=== PATIENT | female | born 1965 | race Caucasian/White ===

== ENCOUNTER 2018-01-20 12:07 | Inpatient (IN) ==
--- NOTE | 2018-01-20 12:50 | Emergency Department Note ---
Disposition Clinical Impression: Syncope and collapse Head injury Qualifiers: Encounter type: initial encounter Qualified Code(s): S09.90XA - Unspecified injury of head, initial encounter Disposition: Admitted As Inpatient General Adult HPI - General Chief complaint: ED Syncope Stated complaint: "passed out hit head" sent by pulm Time Seen by Provider: 01/20/18 12:12 Source: patient Limitations: no limitations - History of Present Illness Pain Scale: 0 - Related Data Home Medications Medication Instructions Recorded Confirmed Citalopram Hydrobromide [Celexa] 20 mg PO DAILY 03/14/17 01/20/18 diazePAM [Valium] 5 mg PO BID 03/14/17 01/20/18 Gabapentin [Neurontin] 600 mg PO TID 08/27/17 01/20/18 Trazodone HCl 200 mg PO HS PRN 08/27/17 01/20/18 Ondansetron ODT [Zofran ODT] 4 mg SL Q6HR PRN 11/20/17 01/20/18 Rivaroxaban [Xarelto] 20 mg PO DAILY 01/20/18 01/20/18 Previous Rx's Medication Instructions Recorded Omeprazole [PriLOSEC] 40 mg PO DAILY@0630 30 Days #60 11/28/17 capsule. Allergies Allergy/AdvReac Type Severity Reaction Status Date / Time bee venom protein (honey bee) Allergy Swelling Verified 11/18/17 10:46 of Lip/Tongue/Throat acetaminophen AdvReac Vomiting Verified 11/18/17 10:46 [From Darvocet-N] prednisone AdvReac Agitated Verified 11/18/17 10:46 propoxyphene AdvReac Vomiting Verified 11/18/17 10:46 [From Darvocet-N] Past Medical History - Past Medical History Medical history: Reports: CVA, DVT, other Surgical history: Reports: appendectomy, cholecystectomy Psychiatric history: Reports: anxiety, depression - Social History Smoking Status: Current every day smoker Smokeless Tobacco Status: No Alcohol use: Reports: none Drug use: Reports: none Physical Exam - General Limitations: no limitations General appearance: alert, in no apparent distress Course Vital Signs Temperature 97.7 F 01/20/18 12:09 Pulse Rate 99 01/20/18 12:09 Respiratory Rate 18 01/20/18 12:09 Blood Pressure 94/69 01/20/18 12:09 O2 Sat by Pulse Oximetry 96 01/20/18 12:09 Temperature 97.6 F 01/20/18 15:52 Pulse Rate 78 01/20/18 15:52 Respiratory Rate 14 01/20/18 15:52 Blood Pressure 103/69 01/20/18 16:35 O2 Sat by Pulse Oximetry 95 01/20/18 15:52 Oxygen Delivery Oxygen Delivery Room Air Medical Decision Making - Lab Data Result diagrams: 01/20/18 12:59 01/20/18 12:59 Lab Results 01/20/18 01/20/18 Range/Units 12:59 12:59 WBC 9.3 (4.3-11.1) K/mcL RBC 4.36 (3.82-4.97) M/mcL Hgb 14.5 (11.5-15.4) g/dL Hct 42.7 (35.3-44.9) % MCV 97.9 (83.0-100.0) fL MCH 33.3 (28.0-33.3) pg MCHC 34.0 (31.6-35.5) g/dL RDW 15.6 H (11.5-14.5) % Plt Count 232 (140-400) K/mcL MPV 9.7 (9.4-12.4) fL Immature Gran % 0.2 (0-4) % Seg Neutrophils % 59.9 % Lymphocytes % 31.5 % Monocytes % 5.4 % Eosinophils % 2.5 % Basophils % 0.5 % Neutrophils # 5.5 (1.6-8.9) K/mcL Lymphocytes # 2.9 (0.6-4.6) K/mcL Monocytes # 0.5 (0.0-1.3) K/mcL Eosinophils # 0.2 (0.0-0.6) K/mcL Basophils # 0.1 (0.0-0.2) K/mcL Sodium 137 (136-145) mEq/L Potassium 2.3 L* (3.5-5.1) mEq/L Chloride 106 (98-107) mEq/L Carbon Dioxide 23 (23-29) mEq/L BUN 11 (6-20) mg/dL Creatinine 0.92 (0.60-1.20) mg/dL Est GFR ( Amer) > 60 (> 60) Est GFR (Non-Af Amer) > 60 (> 60) BUN/Creatinine Ratio 12 (6-26) Glucose 83 (70-105) mg/dL Calculated Osmolality 283 (280-300) Calcium 8.4 L (8.6-10.3) mg/dL Magnesium 1.7 (1.6-2.6) mg/dL Troponin I < 0.03 (< 0.04) ng/mL Attestation Statement - Attestation Attestation: I examined this patient and my medical decision-making was reviewed with the [facility] [employer] REPAIRER/PA/Advanced Practice Nurse/Resident Physician. I agree with the documented findings, disposition and treatment plan as described except to the extent set forth below. I did speak with the addition who sent the patient here and did see the patient spoke with her and the patient has had multiple episodes during this week and she is currently minimally hypotensive with a blood pressure 94. She does not have dizziness at this time. She does have chronic left-sided weakness from a stroke in 2010 but no new numbness or weakness of extremities, slurred speech, facial droop or confusion and no pain head, neck, chest, abdomen or back. Chronic diarrhea from Crohn's disease but no new diarrhea or vomiting. No blood in the urine or stool. No fever. Patient does have an evaluation in progress including labs, monitoring, EKG, chest x-ray and will be admitted. 1249 I did review the EKG showing normal sinus rhythm with a rate of 79 without acute ischemic, no evidence of hypertrophic cardiomyopathy, WPW, prolonged QT or Brugada syndrome. 1320
--- NOTE | 2018-01-20 12:56 | Emergency Department Note ---
Disposition Clinical Impression: Syncope and collapse, Hypokalemia Head injury Qualifiers: Encounter type: initial encounter Qualified Code(s): S09.90XA - Unspecified injury of head, initial encounter Disposition: Admitted As Inpatient Syncope HPI - General Chief Complaint: ED Syncope Stated Complaint: "passed out hit head" sent by pulm Time Seen by Provider: 01/20/18 12:12 Source: patient Limitations: no limitations Nursing Notes Reviewed: Yes Vital Signs Reviewed: Yes - History of Present Illness HPI Narrative: 52-year-old female history of prior left sided weakness from prior CVA and pulmonary embolism on Xarelto presents an emergency department for episode of syncope. Patient states over the past week she is been having fainting episodes up to 3 times a day over the past week, most recent yesterday where she passed out while walking and struck her head. She denies any prodromal symptoms such as chest pain, headache, shortness of breath, nausea or vomiting. She denies any alcohol use or neck pain. Denies any new extremity weakness. Denies slurring of her speech or confusion. She denies any syncopal episodes today. Patient was seen in the clinic by rfid systems engineer Dr. Bay was sent here for further evaluation. Denies history of congestive heart failure. Denies any other recent illness. Denies any bloody stool black tarry stool. Denies history of stroke. Pt Subjective Complaint: loss of consciousness - Related Data Home Medications Medication Instructions Recorded Confirmed Citalopram Hydrobromide [Celexa] 20 mg PO DAILY 03/14/17 01/20/18 diazePAM [Valium] 5 mg PO BID 03/14/17 01/20/18 Gabapentin [Neurontin] 600 mg PO TID 08/27/17 01/20/18 Trazodone HCl 200 mg PO HS PRN 08/27/17 01/20/18 Ondansetron ODT [Zofran ODT] 4 mg SL Q6HR PRN 11/20/17 01/20/18 Rivaroxaban [Xarelto] 20 mg PO DAILY 01/20/18 01/20/18 Previous Rx's Medication Instructions Recorded Omeprazole [PriLOSEC] 40 mg PO DAILY@0630 30 Days #60 11/28/17 capsule. Allergies Allergy/AdvReac Type Severity Reaction Status Date / Time bee venom protein (honey bee) Allergy Swelling Verified 11/18/17 10:46 of Lip/Tongue/Throat acetaminophen AdvReac Vomiting Verified 11/18/17 10:46 [From Darvocet-N] prednisone AdvReac Agitated Verified 11/18/17 10:46 propoxyphene AdvReac Vomiting Verified 11/18/17 10:46 [From Darvocet-N] All systems ED: reviewed and negative except as stated. Review of Systems: As Per HPI Constitutional: Reports: weakness (Chronic). Denies: fever, chills ENT ED: Denies: congestion Cardiovascular: Denies: chest pain, palpitations, dyspnea on exertion Respiratory: Denies: cough, dyspnea Gastrointestinal: Reports: diarrhea. Denies: abdominal pain, nausea, vomiting Musculoskeletal: Denies: back pain, neck pain, arthralgia Neurological: Denies: headache, confusion Past Medical History - Past Medical History Attestation: Yes The following information was validated with the patient. Source: patient Medical history: Reports: CVA, DVT, other Surgical history: Reports: appendectomy, cholecystectomy Psychiatric history: Reports: anxiety, depression - Social History Smoking Status: Current every day smoker Smokeless Tobacco Status: No Alcohol use: Reports: none Drug use: Reports: none Physical Exam - General Limitations: no limitations General appearance: alert, in no apparent distress - Head Head exam: atraumatic, normocephalic, normal inspection - Eye Eye exam: Present: normal appearance, PERRL, EOMI - ENT ENT exam: normal exam, normal oropharynx, mucous membranes moist - Neck Neck exam: Present: normal inspection, full ROM, trachea midline - Chest Chest inspection: Present: normal inspection, symmetric chest wall rise - Respiratory Respiratory exam: Present: normal lung sounds bilaterally - Cardiovascular Cardiovascular exam: Present: regular rate, normal rhythm, normal heart sounds, other (No murmur with Valsalva). Absent: systolic murmur, diastolic murmur - Abdominal Exam Abdominal exam: Present: soft, Non-Tender, normal bowel sounds. Absent: tenderness, distention, guarding, rebound, rigidity - Extremities Exam Extremities exam: Present: normal inspection, full ROM, normal capillary refill. Absent: tenderness, pedal edema, calf tenderness - Neurological Exam Neurological exam: Present: alert, oriented X3, CN II-XII intact - Expanded Neurological Exam Patient oriented to: Present: person, place, time Speech: Present: fluid speech Cranial nerves: EOM function (II, III, IV, ): Normal, facial sensation (V): Normal, facial palsy (VII): Normal, gag reflex (IX): Normal, spinal accessory function (XI): Normal, tongue deviation (XII): Normal Cerebellar function: heel to krause: Normal Motor strength - LUE: 5/5 Motor strength - RUE: 5/5 Motor strength - LLE: 5/5 Motor strength - RLE: 5/5 Upper motor neuron exam: wilson neglect: Absent bilaterally, pronator drift: Absent bilaterally Sensory exam upper extremity: light touch: Normal Sensory exam lower extremity: light touch: Normal - Skin Skin exam: Present: warm, dry, intact, normal color. Absent: rash, cyanosis, diaphoresis Course Course Narrative: Patient presents with syncopal episode on anticoagulation. Will evaluate for possible cardiac etiology of her syncope given history of pulmonary embolism. Trauma evaluation as well. On examination she is not display any neurologic deficits. - Reevaluation(s) Reevaluation #1: A scan of the CT head unremarkable for bleed. Findings of chronic old infarct. Review of her labs there is no signs of anemia. Her potassium is low at 2.3. Will replace with PO potassium chloride here. Magnesium was ordered 1.7. Does not require repletion. EKG does not show any concerning findings of acute ischemia, Brugada pattern, LVH or [place]. Her labs or otherwise unremarkable. Chest x-ray unremarkable. Given her frequency of syncopal episodes she will be admitted for further evaluation. On monitoring engineer in emergency department without any findings of arrhythmia. Patients in agreement with this plan. Impression is syncope and hypokalemia. - Consultations Consultation #1: Spoke with on-call hospitalist earle Piper to admit for syncope, hypokalemia, and anticoagulation with history of PE. No further orders at this time Time: 15:40 Vital Signs Temperature 97.7 F 01/20/18 12:09 Pulse Rate 99 01/20/18 12:09 Respiratory Rate 18 01/20/18 12:09 Blood Pressure 94/69 01/20/18 12:09 O2 Sat by Pulse Oximetry 96 01/20/18 12:09 Temperature 97.9 F 01/20/18 19:11 Pulse Rate 69 01/20/18 19:11 Respiratory Rate 16 01/20/18 19:11 Blood Pressure 99/68 01/20/18 19:11 O2 Sat by Pulse Oximetry 97 01/20/18 19:44 Oxygen Delivery Oxygen Delivery Room Air Syncope - MDM Narrative Medical decision making narrative: Patient was discussed with my attending physician who agrees with ED management and final disposition. They independently evaluated the patient. Please refer to their attestation to this encounter for additional information. This note was generated by [employer] voice recognition software and as a result grammatical or spelling errors may occur using this program. - Medical Records Medical records reviewed: Yes I reviewed the patient's medical records. - Lab Data Lab results reviewed: Yes I reviewed the patient's lab results. Result diagrams: 01/20/18 12:59 01/20/18 12:59 Lab Results 01/20/18 01/20/18 Range/Units 12:59 12:59 WBC 9.3 (4.3-11.1) K/mcL RBC 4.36 (3.82-4.97) M/mcL Hgb 14.5 (11.5-15.4) g/dL Hct 42.7 (35.3-44.9) % MCV 97.9 (83.0-100.0) fL MCH 33.3 (28.0-33.3) pg MCHC 34.0 (31.6-35.5) g/dL RDW 15.6 H (11.5-14.5) % Plt Count 232 (140-400) K/mcL MPV 9.7 (9.4-12.4) fL Immature Gran % 0.2 (0-4) % Seg Neutrophils % 59.9 % Lymphocytes % 31.5 % Monocytes % 5.4 % Eosinophils % 2.5 % Basophils % 0.5 % Neutrophils # 5.5 (1.6-8.9) K/mcL Lymphocytes # 2.9 (0.6-4.6) K/mcL Monocytes # 0.5 (0.0-1.3) K/mcL Eosinophils # 0.2 (0.0-0.6) K/mcL Basophils # 0.1 (0.0-0.2) K/mcL Sodium 137 (136-145) mEq/L Potassium 2.3 L* (3.5-5.1) mEq/L Chloride 106 (98-107) mEq/L Carbon Dioxide 23 (23-29) mEq/L BUN 11 (6-20) mg/dL Creatinine 0.92 (0.60-1.20) mg/dL Est GFR ( Amer) > 60 (> 60) Est GFR (Non-Af Amer) > 60 (> 60) BUN/Creatinine Ratio 12 (6-26) Glucose 83 (70-105) mg/dL Calculated Osmolality 283 (280-300) Calcium 8.4 L (8.6-10.3) mg/dL Magnesium 1.7 (1.6-2.6) mg/dL Troponin I < 0.03 (< 0.04) ng/mL - Radiology Data Radiology results reviewed: Yes I reviewed the patient's radiology results. Chest X-Ray 01/20/18 12:44 IMPRESSION: 1. No acute cardiopulmonary disease. D/ / Noe Valdez MD / Noe Valdez MD Interpreting Provider: Noe Valdez MD Head CT 01/20/18 12:44 IMPRESSION: Stable appearing CT scan of the head without acute intracranial hemorrhage status post trauma. 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 D/ / Jacek Conti MD / Jacek Conti MD Interpreting Provider: Jaeck Conti MD - EKG Data EKG attestation: Yes I reviewed and interpreted this EKG. EKG results narrative: EKG performed normal sinus rhythm [address] elevation or depression. No ischemic changes. Intervals are within normal limits. No evidence of delta waves, Brugada pattern or LVH.
[2018-01-20 13:15] LABS: Basophils # 0.1 K/mcL (0.0-0.2); Basophils % 0.5 %; Eosinophils # 0.2 K/mcL (0.0-0.6); Eosinophils % 2.5 %; Hematocrit 42.7 % (35.3-44.9); Hemoglobin 14.5 g/dL (11.5-15.4); Immature Granulocytes % 0.2 % (0-4); Lymphocytes # 2.9 K/mcL (0.6-4.6); Lymphocytes % 31.5 %; Mean Corpuscular Hemoglobin 33.3 pg (28.0-33.3); Mean Corpuscular Volume 97.9 fL (83.0-100.0); Mean Platelet Volume 9.7 fL (9.4-12.4); Monocytes # 0.5 K/mcL (0.0-1.3); Monocytes % 5.4 %; Neutrophils # 5.5 K/mcL (1.6-8.9); Platelet Count 232 K/mcL (140-400); Red Blood Count 4.36 M/mcL (3.82-4.97); Red Cell Distribution Width 15.6 % (11.5-14.5); Segmented Neutrophils % 59.9 %
[2018-01-20 13:36] LABS: Troponin I < 0.03 ng/mL (< 0.04)
[2018-01-20 13:51] LABS: BUN/Creatinine Ratio 12 (6-26); Blood Urea Nitrogen 11 mg/dL (6-20); Calcium 8.4 mg/dL (8.6-10.3); Carbon Dioxide 23 mEq/L (23-29); Chloride 106 mEq/L (98-107); Glucose 83 mg/dL (70-105); Osmolality,Calculated 283 (280-300); Potassium 2.3 mEq/L (3.5-5.1); Sodium 137 mEq/L (136-145); eGFR For African Americans > 60 (> 60); eGFR For Non-African Americans > 60 (> 60)
[2018-01-20 14:20] LABS: Magnesium 1.7 mg/dL (1.6-2.6)
[2018-01-20] MEDS ORDERED: Naloxone 0.4 MG/ML INJ IVP PRN (15:22)
--- NOTE | 2018-01-20 15:54 | Internal Med History&Physical ---
<Mela Cheema - Last Filed: 01/20/18 15:39> Date of Encounter: 01/20/18 Time of Encounter: 15:39 Internal Medicine - H&P: HPI Admitted From: Home Plans for Post Hospital Care: Home History of present illness: Ms. Anne is a 52 year old female who presented from her physician's office with a recent syncopal episode. She stated she was walking in her kitchen and felt a warm sensation that began at her feet and severino to her head. She then tried to sit down, blacked out, then fell and hit her head. She indicated that she remembered falling. Her took her to her PCP and her pcp recommended she be seen in the hospital. She denied any dizziness and stated that she has never had this happen before. She indicated that she has a history of hypotension and does not take any anti-hypertensive meds. She also has hx of hypokalema and presented with a potassium level of 2.3. She was supplemented with K in the ED. BP is currently 94/69. Ct scan was negative for acute hemorrhage. No focal deficits were seen. She has hx of CVA from 2010 and reports some very mild weakness to left side. No other cardiac history. Trop is non-detectable @ <0.03. EKG showed SR with no abnormalities. Rate was controlled at 74 bpm. Past Med Surg Social Fam HX - Past Medical History Medical history: CVA, DVT, other (Crohn's) Psychiatric history: anxiety, depression - Past Surgical History Surgical History: appendectomy, cholecystectomy - Social History Smoking Status: Current every day smoker Smokeless Tobacco Status: No Alcohol use: none Drug use: none - Family History Mother Adopted: No Family Member Ethnicity: Non- Living Status: Hx Family Cardiac Disorders: No Hx Family Respiratory Disorders: No Hx Family Cancer: No Hx Family GI Disorders: No Hx Family Endocrine Disorder: No Hx Family Neuromuscular Disorders: No Hx Family Neurologic Disorders: No Hx Family HEENT Disorders: No Hx Family Autoimmune Disorders: No Internal Medicine - H&P: Meds Citalopram Hydrobromide [Celexa] 20 mg PO DAILY 03/14/17 [History] diazePAM [Valium] 5 mg PO BID 03/14/17 [History] Gabapentin [Neurontin] 600 mg PO TID 08/27/17 [History] Trazodone HCl 200 mg PO HS PRN 12/08/17 [History] Ondansetron ODT [Zofran ODT] 4 mg SL Q6HR PRN 11/20/17 [History] Omeprazole [PriLOSEC] 40 mg PO DAILY@0630 30 Days #60 capsule. 11/28/17 [Rx] Rivaroxaban [Xarelto] 20 mg PO DAILY 01/20/18 [History] 3 Allergy/AdvReac Type Severity Reaction Status Date / Time bee venom protein (honey bee) Allergy Swelling Verified 11/18/17 10:46 of Lip/Tongue/Throat acetaminophen AdvReac Vomiting Verified 11/18/17 10:46 [From Darvocet-N] prednisone AdvReac Agitated Verified 11/18/17 10:46 propoxyphene AdvReac Vomiting Verified 11/18/17 10:46 [From Darvocet-N] All Systems PM: A 10-system review of systems was performed and is negative for pertinent findings except as documented above in the HPI. - Constitutional Constitutional: falls, weakness (chronic left side weakness), no chills, no fever(s), no night sweats - EENT Eyes: no change in vision, no discharge, no pain, no photophobia Ears: no ear discharge, no ear pain, no tinnitus Nose, mouth and throat: no dysphagia, no nasal discharge, no neck pain, no sore throat - Cardiovascular Cardiovascular ROS IM: syncope, no chest pain, no diaphoresis, no dyspnea, no lightheadedness, no palpitations - Respiratory Respiratory: no cough, no dyspnea, no wheezing, no excessive phlegm production - Gastrointestinal Gastrointestinal: no abdominal pain, no diarrhea, no hematemesis, no hematochezia, no melena, no nausea, no vomiting - Genitourinary Genitourinary: no change in urinary stream, no dysuria, no flank pain, no hematuria - Musculoskeletal Musculoskeletal ROS IM: no numbness, no tingling - Integumentary Integumentary IM: no rash, no unusual bruising - Neurological Neurological ROS: weakness (extremities), no confusion, no convulsions, no focal weakness, no numbness, no tingling, no tremor(s) - Hematologic/Lymphatic Hematologic/Lymphatic: no easy bruising - Constitutional Vitals: Temp Pulse Resp BP Pulse Ox 97.7 F 80 15 112/74 94 01/20/18 12:29 01/20/18 14:47 01/20/18 14:47 01/20/18 14:47 01/20/18 14:47 General appearance: Present: A&O X 3, answers questions appropriately - Head Head exam: Present: atraumatic, normocephalic - Eye Eye exam: Present: PERRL, conjuntiva pink, sclera anicteric Pupils: Present: PERRL - Neck Neck exam general surgery: Present: supple, trachea midline. Absent: lymphadenopathy - Respiratory Respiratory exam: Present: CTAB. Absent: accessory muscle use, rales, rhonchi, wheezes - Cardiovascular Cardiovascular exam: Present: RRR, +S1, +S2. Absent: diastolic murmur, gallop, rubs, systolic murmur - GI/Abdominal GI/Abdominal exam: Present: normal bowel sounds, soft, no peritoneal signs. Absent: distended, tenderness - Extremities Exam Extremities exam: Present: warm, radial pulses palpable and symmetrical. Absent : calf tenderness, cyanotic, pedal edema - Neurological Exam Neurological exam: Present: CN II-XII intact, oriented X3, no focal deficits ( Generalized left sided weakness). Absent: pronater drift, facial droop, speech deficit - Skin Skin exam: Present: dry, intact Internal Med - H&P Results - Labs CBC & Chem 7: 01/20/18 12:59 01/20/18 12:59 - Assessment and plan (1) Syncope and collapse Current Visit: Yes Status: Acute Assessment and plan: The patient had a syncopal episode at home today, where she collapsed and hit her head. She saw her PCP and followed up here in the hospital. Ct scan was negative for bleed.. She indicated that her bp is typically low and does not take any antihypertensives. She stated she uses oxygen at home d/t a hx of hypoxia. Will get orthostatic bp's daily. Will also trend cardiac enzymes q6h x 3 to ensure no cardiac involvement. Start IVF's and cardiac monitoring. Neuro checks every 3 hours due to head injury. (2) Hypokalemia Current Visit: Yes Status: Acute Assessment and plan: The patient potassium level is 2.3 on admission today. It was supplemented in the ED and will recheck serum potassium in the am. No EKG changes noted. SR rate controlled, no ectopy. (3) Hypoxia Current Visit: No Status: Chronic Assessment and plan: The patient 02 sat was 96% on admission. Will monitor for hypoxia during course of stay. Reports home O2 use at home. (4) Crohn's disease Current Visit: No Status: Chronic Assessment and plan: The patient's crohn's is labile and she indicated she would be starting [employer] treatments next month with a outpatient provider.States she was here in the hospital several months ago due to a GI bleed from a ruptured GI polyp. Qualifiers: Gastrointestinal tract location: unspecified location Digestive disease complication type: with rectal bleeding Qualified Code(s): K50.911 - Crohn's disease, unspecified, with rectal bleeding (5) DVT prophylaxis Current Visit: No Status: Acute Assessment and plan: The patient's home dose of Xarelto will be continued. She has hx of CVA and DVT. - Time Spent With Patient Total time spent is greater than 50% in coordination of care (as documented) at patient's floor/unit and/or counseling patient: 25 - 35 minutes <Melissa Raphael - Last Filed: 01/20/18 17:41> Date of Encounter: 01/20/18 Internal Medicine - H&P: HPI History of present illness: Ms. Anne is a 52 year old female All Systems PM: A 10-system review of systems was performed and is negative for pertinent findings except as documented above in the HPI. - Constitutional Vitals: Temp Pulse Resp BP Pulse Ox 97.6 F 78 14 103/69 95 01/20/18 15:52 01/20/18 15:52 01/20/18 15:52 01/20/18 16:35 01/20/18 15:52 Internal Med - H&P Results - Labs CBC & Chem 7: 01/20/18 12:59 01/20/18 12:59 - Attending Attestation I examined this patient and my medical decision-making was reviewed with the Resident Physician. I agree with the documented findings, disposition and treatment plan as described except to the extent set forth below. - Time Spent With Patient Total time spent is greater than 50% in coordination of care (as documented) at patient's floor/unit and/or counseling patient:
[2018-01-20] MEDS: 0.9 % Sodium Chloride 1,000 ML IVC SCH (16:28)
[2018-01-20] MEDS: Ondansetron ODT 4 MG TAB.RAPDIS SL PRN (19:33)
[2018-01-20] MEDS: traZODone 50 MG TABLET PO PRN (20:49)
[2018-01-20] MEDS: Gabapentin 300 MG CAPSULE PO SCH (20:49)
[2018-01-20] MEDS: diazePAM 5 MG TABLET PO SCH (20:49)
[2018-01-21 02:09] LABS: Basophils % 0.5 %; Eosinophils # 0.3 K/mcL (0.0-0.6); Eosinophils % 3.7 %; Hematocrit 33.1 % (35.3-44.9); Hemoglobin 11.2 g/dL (11.5-15.4); Immature Granulocytes % 0.3 % (0-4); Lymphocytes # 3.1 K/mcL (0.6-4.6); Lymphocytes % 39.3 %; Mean Corpuscular HGB Conc 33.8 g/dL (31.6-35.5); Mean Corpuscular Hemoglobin 33.1 pg (28.0-33.3); Mean Corpuscular Volume 97.9 fL (83.0-100.0); Monocytes # 0.4 K/mcL (0.0-1.3); Neutrophils # 4.1 K/mcL (1.6-8.9); Platelet Count 199 K/mcL (140-400); Red Blood Count 3.38 M/mcL (3.82-4.97); Red Cell Distribution Width 15.5 % (11.5-14.5); Segmented Neutrophils % 51.2 %
[2018-01-21 02:28] LABS: BUN/Creatinine Ratio 16 (6-26); Blood Urea Nitrogen 11 mg/dL (6-20); Calcium 7.1 mg/dL (8.6-10.3); Carbon Dioxide 22 mEq/L (23-29); Chloride 111 mEq/L (98-107); Glucose 82 mg/dL (70-105); Osmolality,Calculated 284 (280-300); Potassium 2.3 mEq/L (3.5-5.1); Sodium 138 mEq/L (136-145); eGFR For African Americans > 60 (> 60); eGFR For Non-African Americans > 60 (> 60)
[2018-01-21] MEDS: 0.9 % Sodium Chloride 1,000 ML IVC SCH (06:12)
--- NOTE | 2018-01-21 06:21 | Electrocardiograph Report ---
[facility] Test Date: 2018-01-20 Pat Name: Shante Anne Department: 102 Room: 3B46 Gender: F Manager Emergency Department: : 1965 Requested By: Cleveland Bautista Order Number: [id number] Reading MD: Amish Madrid Measurements Intervals [place] Rate: 79 P: 70 NV: 183 QRS: 68 QRSD: 81 T: 65 QT: 396 QTc: 431 Interpretive Statements SINUS RHYTHM Electronically Signed On 01-21-2018 6:20:11 EDT by Amish Madrid
[2018-01-21] MEDS: Gabapentin 300 MG CAPSULE PO SCH ×3 (07:59→20:30)
[2018-01-21] MEDS: *HR* Rivaroxaban 10 MG TABLET PO SCH (07:59)
[2018-01-21] MEDS: diazePAM 5 MG TABLET PO SCH ×2 (07:59→20:31)
[2018-01-21] MEDS: Ondansetron ODT 4 MG TAB.RAPDIS SL PRN (12:37)
--- NOTE | 2018-01-21 14:53 | Internal Med Progress Note ---
Date of Encounter: 01/21/18 Time of Encounter: 14:50 - Assessment and plan (1) Syncope and collapse Current Visit: Yes Status: Acute Assessment and plan: reported 3 episodes of passing out at home; struck her head on one fall. Head CT nonacute. Neurologically intact. No arrhythmia noted on telemetry. BP soft /borderline. No symptom recurrence while inpatient. Continue to monitor on telemetry, echocardiogram pending. Check orthostatic BPs. Continue IV fluids, midodrine. (2) Hypotension Current Visit: Yes Status: Acute Assessment and plan: with SBPs in 80s-90s. Patient reports this is her baseline which is likely secondary to hypovolemia secondary to chronic diarrhea however BP not responsive to IV fluids/Midrin. Low suspicion for pulmonary embolism as she is on Xarelto however will obtain chest CTA to rule out dissection. Qualifiers: Hypotension type: unspecified hypotension type Qualified Code(s): I95.9 - Hypotension, unspecified (3) Chronic respiratory failure Current Visit: Yes Status: Acute Assessment and plan: per patient . History. On oxygen at home. Adequately saturating on room air. Supplemental O2 as needed. Qualifiers: Respiratory failure complication: unspecified whether with hypoxia or hypercapnia Qualified Code(s): J96.10 - Chronic respiratory failure, unspecified whether with hypoxia or hypercapnia (4) Hypokalemia Current Visit: Yes Status: Acute Assessment and plan: K 2.4; likely secondary on a clue stool. Continue home oral supplements, add K rider. Monitor repeat CMP, Mg (5) Crohn's disease Current Visit: No Status: Chronic Assessment and plan: hx labile Crohn's and plan to start Remicaid treatments next month with a outpatient provider. Has chronic loose stool, suspect this is contributing to hypokalemia. Follow-up outpatient as previously planned Qualifiers: Gastrointestinal tract location: unspecified location Digestive disease complication type: with rectal bleeding Qualified Code(s): K50.911 - Crohn's disease, unspecified, with rectal bleeding (6) Hypercoagulable state Current Visit: No Status: Acute Assessment and plan: with hx prior CVA and DVT. Cont home xarelto (7) DVT prophylaxis Current Visit: No Status: Acute Assessment and plan: Xarelto - Time Spent With Patient Total time spent is greater than 50% in coordination of care (as documented) at patient's floor/unit and/or counseling patient: - Subjective Interval history: Seen and examined at bedside. Patient is new to me, information obtained from chart review and patient report. Patient says she feels better would like to go home today if possible. She tells me she is passed out multiple times over the last week and had 3 syncopal episodes this week alone. Says episodes start with a burning sensation in her feet and the trauma to her body, she gets lightheaded and dizzy in the next thing she knows she is passing out. No family available for collateral. No further syncopal episodes. Denies palpitations, no chest pain or shortness of breath. - Constitutional Vitals: Temp Pulse Resp BP Pulse Ox 97.8 F 65 16 89/60 100 01/21/18 11:49 01/21/18 11:49 01/21/18 11:49 01/21/18 11:49 01/21/18 11:49 General appearance: Present: A&O X 3, no acute distress, answers questions appropriately - Head Head exam: Present: atraumatic, normocephalic - Eye Eye exam: Present: PERRL, conjuntiva pink, sclera anicteric Pupils: Present: PERRL - Neck Neck exam general surgery: Present: supple, trachea midline. Absent: lymphadenopathy - Respiratory Respiratory exam: Present: CTAB. Absent: accessory muscle use, rales, rhonchi, wheezes - Cardiovascular Cardiovascular exam: Present: RRR, +S1, +S2. Absent: diastolic murmur, gallop, rubs, systolic murmur - GI/Abdominal GI/Abdominal exam: Present: normal bowel sounds, soft, no peritoneal signs. Absent: distended, tenderness - Extremities Exam Extremities exam: Present: warm, radial pulses palpable and symmetrical. Absent : calf tenderness, cyanotic, pedal edema - Neurological Exam Neurological exam: Present: CN II-XII intact, oriented X3, no focal deficits. Absent: pronater drift, facial droop, speech deficit - Skin Skin exam: Present: dry, intact Internal Medicine: Result - Labs CBC & Chem 7: 01/21/18 01:39 01/21/18 14:31 Consult Discharge Plan - Plan Referrals: Bushra Chaparro, [facility] [Primary Care Provider] -
[2018-01-21] MEDS ORDERED: Potassium Chloride 40 MEQ, Lidocaine 1% 2 ML in D5% in Water 500 ML IVPB ONE (15:15)
[2018-01-21] MEDS ORDERED: Isovue-370 500 ML INFUS..BTL IV ONE (15:25)
[2018-01-21] MEDS: traZODone 50 MG TABLET PO PRN (20:30)
[2018-01-22 06:11] LABS: Basophils % 0.4 %; Eosinophils # 0.3 K/mcL (0.0-0.6); Eosinophils % 4.4 %; Hematocrit 35.5 % (35.3-44.9); Hemoglobin 11.7 g/dL (11.5-15.4); Immature Granulocytes % 0.3 % (0-4); Lymphocytes # 2.6 K/mcL (0.6-4.6); Mean Corpuscular Hemoglobin 33.1 pg (28.0-33.3); Mean Corpuscular Volume 100.3 fL (83.0-100.0); Mean Platelet Volume 10.4 fL (9.4-12.4); Monocytes # 0.4 K/mcL (0.0-1.3); Monocytes % 5.4 %; Neutrophils # 3.9 K/mcL (1.6-8.9); Platelet Count 202 K/mcL (140-400); Red Blood Count 3.54 M/mcL (3.82-4.97); Red Cell Distribution Width 15.8 % (11.5-14.5); Segmented Neutrophils % 53.5 %
[2018-01-22 06:31] LABS: BUN/Creatinine Ratio 13 (6-26); Blood Urea Nitrogen 9 mg/dL (6-20); Calcium 7.8 mg/dL (8.6-10.3); Carbon Dioxide 17 mEq/L (23-29); Chloride 119 mEq/L (98-107); Glucose 69 mg/dL (70-105); Magnesium 1.5 mg/dL (1.6-2.6); Osmolality,Calculated 287 (280-300); Potassium 3.3 mEq/L (3.5-5.1); Sodium 140 mEq/L (136-145); eGFR For African Americans > 60 (> 60); eGFR For Non-African Americans > 60 (> 60)
[2018-01-22] MEDS: *HR* Rivaroxaban 10 MG TABLET PO SCH (09:03)
[2018-01-22] MEDS: diazePAM 5 MG TABLET PO SCH (09:03)
[2018-01-22] MEDS: Gabapentin 300 MG CAPSULE PO SCH (09:03)
[2018-01-22] MEDS ORDERED: 0.9 % Sodium Chloride 500 ML IVC ONE (09:09)
--- NOTE | 2018-01-22 16:08 | Discharge Summary ---
- NOTES TO OUTPATIENT PROVIDER Notes to Outpatient Provider: Would benefit from outpatient Holter monitor Orders not resulted at time of discharge: Pending orders 01/22/18 16:05 Potassium Stat Date of Encounter: 01/22/18 Time of Encounter: 16:05 - Discharge Diagnosis (1) Syncope and collapse Priority: Primary Status: Acute Assessment and Plan: reported 3 episodes of passing out at home; struck her head on one fall. Head CT nonacute. Neurologically intact. BP soft/borderline. No symptom recurrence while inpatient. TTE without evidence of structural heart disease. Bilateral carotid Dopplers with nonstenotic plaque. Possibly secondary to hypotension however she would likely benefit from an outpatient Holter monitor. We will defer to PCP. Patient advised to return to ER if symptoms recur. (2) Hypotension Priority: Primary Status: Acute Assessment and Plan: with SBPs in 80s-90s. Patient reports this is her baseline which is likely secondary to hypovolemia secondary to chronic diarrhea. Chest CTA negative for dissection. No tachycardia, maintaining mentation. Suspect this is patient's baseline. BP stable with addition of Midrin. Recommend outpatient follow-up with PCP Qualifiers: Hypotension type: unspecified hypotension type Qualified Code(s): I95.9 - Hypotension, unspecified (3) Hypokalemia Priority: Primary Status: Acute Assessment and Plan: K 2.4; likely secondary to chronic loose stool. Continue home oral supplements. Recommend repeat CMP with PCP within one week (4) Chronic respiratory failure Priority: Primary Status: Acute Assessment and Plan: per patient . History. On oxygen at home. Adequately saturating on room air. Qualifiers: Respiratory failure complication: unspecified whether with hypoxia or hypercapnia Qualified Code(s): J96.10 - Chronic respiratory failure, unspecified whether with hypoxia or hypercapnia (5) Crohn's disease Priority: Primary Status: Chronic Assessment and Plan: hx labile Crohn's and plan to start Remicaid treatments next month with a outpatient provider. Has chronic loose stool, suspect this is contributing to hypokalemia. Follow-up outpatient as previously planned Qualifiers: Gastrointestinal tract location: unspecified location Digestive disease complication type: with rectal bleeding Qualified Code(s): K50.911 - Crohn's disease, unspecified, with rectal bleeding (6) Hypercoagulable state Priority: Primary Status: Acute Assessment and Plan: with hx prior CVA and DVT. Cont home xarelto Hospital course: See assessment and plan for hospital course Discharge discussed with: patient (Seen and examined at bedside. Patient says she feels back to her normal self and would like to discharge home today. No lightheadedness or dizziness. No further syncopal episodes. No palpitations.) - Time Spent with Patient Total time spent providing and/or coordinating discharge services: - Discharge Medications Prescriptions: Midodrine [ProAmatine] 5 mg PO 0800,1200,1700 #90 tablet Home Medications: Citalopram Hydrobromide [Celexa] 20 mg PO DAILY 03/14/17 [History] diazePAM [Valium] 5 mg PO BID 03/14/17 [History] Gabapentin [Neurontin] 600 mg PO TID 08/27/17 [History] Trazodone HCl 200 mg PO HS PRN 08/27/17 [History] Ondansetron ODT [Zofran ODT] 4 mg SL Q6HR PRN 11/20/17 [History] Omeprazole [PriLOSEC] 40 mg PO DAILY@0630 30 Days #60 capsule. 11/28/17 [Rx] Rivaroxaban [Xarelto] 20 mg PO DAILY 01/20/18 [History] Potassium Chloride [K-Tab ER] 20 meq PO DAILY 01/21/18 [History] Midodrine [ProAmatine] 5 mg PO 0800,1200,1700 #90 tablet 01/22/18 [Rx] Allergies/Adverse Reactions: 3 Allergy/AdvReac Type Severity Reaction Status Date / Time bee venom protein (honey bee) Allergy Swelling Verified 11/18/17 10:46 of Lip/Tongue/Throat acetaminophen AdvReac Vomiting Verified 11/18/17 10:46 [From Darvocet-N] prednisone AdvReac Agitated Verified 11/18/17 10:46 propoxyphene AdvReac Vomiting Verified 11/18/17 10:46 [From Darvocet-N] Date of admission: 01/21/18 11:54 Primary care physician: Bushra Chaparro CNP Discharging clinician: Mary Hernandez Anticipated date of discharge: 01/22/18 - Constitutional Vitals: Temp Pulse Resp BP Pulse Ox 97.7 F 77 16 83/59 98 01/22/18 15:49 01/22/18 15:49 01/22/18 15:49 01/22/18 15:49 01/22/18 15:49 General appearance: Present: A&O X 3, no acute distress, answers questions appropriately - Patient Status Disposition: Home, Self-Care Condition: Good Functional capacity at discharge: independent ambulation Overall status at discharge: patient is back to baseline - Discharge Instructions Instructions: Syncope (DC), Midodrine (By mouth), Hypokalemia (DC) Follow Up With: Bushra Chaparro, [employer] [employer] [Primary Care Provider] - - Diet and Activity Diet: advance to your usual diet
[2018-01-22 16:15] VITALS: BP 108/72
== END 2018-01-22 19:43 | disposition home or self-care (01) | DRG 641 ==
LOC: EMEROO 12:07 → 3BNU 12:07
PROVIDERS: ADMIT Internal Medicine; ATTEND Internal Medicine